=== PATIENT | female | born 1975 | race Caucasian/White ===

== ENCOUNTER 2017-02-07 12:35 | Emergency (ER) | payer MEDICARE, OTHER ==
[2017-02-07 14:39] LABS: HEMOGLOBIN 12.3 gm/dl (12.3-15.3); RED BLOOD COUNT 4.34 M/UL (4.00-5.10); WHITE BLOOD COUNT 11.8 K/UL (4.5-11.0)
[2017-02-07 15:05] LABS: BUN/CREATININE RATIO 12 (0-10)
== END 2017-02-07 16:30 | disposition home or self-care (01) ==
LOC: ER1 12:35
PROVIDERS: Physician Assistant
DX: J44.9 Chronic obstructive pulmonary disease, unspecified (principal); F17.210 Nicotine dependence, cigarettes, uncomplicated; Z88.0 Allergy status to penicillin; Z88.1 Allergy status to other antibiotic agents
CPT/HCPCS: 36415; 36600; 71020; 80053; 82550; 82553; 82803; 83874; 84484; 85025; 93005; 94664; 96374; 99285; J2930

== ENCOUNTER 2021-08-31 16:48 | Emergency (ER) | payer MEDICARE, OTHER ==
[~2021-08-31 16:48] MED LIST: ZITHROMAX250 MG PO
== END 2021-08-31 17:20 | disposition left against medical advice (07) ==
LOC: ER1 16:48
DX: Z53.21 Procedure and treatment not carried out due to patient leaving prior to being seen by health care provider (principal)

== ENCOUNTER → 2022-05-11 | Outpatient (CLI) | payer MEDICARE, OTHER | LOC: HEART 5 11:35 | DX: J44.9 Chronic obstructive pulmonary disease, unspecified (principal) | CPT/HCPCS: 94060; 94729 ==